=== PATIENT | female | born 1955 ===

== ENCOUNTER 2017-07-13 13:34 | Emergency (ER) | payer MEDICARE, OTHER ==
[2017-07-13 13:50] VITALS: BP 162/85; PULSE 65; RESP 16; TEMP 97.9; O2SAT 100
--- NOTE | 2017-07-13 13:59 | ED PDOC ---
HPI: General Adult Time Seen by Provider: 07/13/17 13:52 Chief Complaint (Nursing): Lower Extremity Problem/Injury Chief Complaint (Provider): fall History Per: Patient History/Exam Limitations: no limitations Onset/Duration Of Symptoms: Mins (prior to arrival) Current Symptoms Are (Timing): Still Present Additional Complaint(s): 62 year old female presents to the ED for evaluation after a fall, onset minutes prior to arrival. Patient reports she was crossing the street when her knee gave out and she fell onto her right knee, face and chest. Patient states she has a known torn ligament to right knee. she complains of pain to her chin and right knee and feels a tightness in chest since the fall. Patient says she feel anxious since she fell. Patient denies dizziness or syncope prior to arrival. She denies loss of consciousness. PMD: Dr. Armando Grier MD Past Medical History Reviewed: Historical Data, Nursing Documentation, Vital Signs Vital Signs: Last Vital Signs Temp 97.9 F 07/13/17 13:48 Pulse 65 07/13/17 13:48 Resp 16 07/13/17 13:48 BP 162/85 H 07/13/17 13:48 Pulse Ox 100 07/13/17 15:01 - Medical History PMH: Anxiety, Arthritis (RA), Rheumatoid Arthritis - Surgical History Surgical History: Appendectomy, Cholecystectomy, Tonsillectomy - Family History Family History: States: No Known Family Hx - Living Arrangements Living Arrangements: With Family - Social History Current smoker - smoking cessation education provided: No Alcohol: None Drugs: Denies - Home Medications Home Medications: Ambulatory Orders Medication Instructions Recorded Meclizine [Antivert] 12.5 mg PO Q6 PRN 07/13/15 "Herbals" 10/28/15 Meclizine HCl 12.5 mg PO Q8 #20 tablet 07/18/16 - Allergies Allergies/Adverse Reactions: Allergies Allergy/AdvReac Type Severity Reaction Status Date / Time No Known Allergies Allergy Verified 07/02/15 12:28 Review of Systems ROS Statement: Except As Marked, All Systems Reviewed And Found Negative ENT: Positive for: Other (chin pain s/p fall) Musculoskeletal: Positive for: Leg Pain (right knee pain) Neurological: Positive for: Other (no LOC) Physical Exam - Reviewed Nursing Documentation Reviewed: Yes Vital Signs Reviewed: Yes - Physical Exam Appears: Positive for: Well, Non-toxic, No Acute Distress Head Exam: Positive for: NORMAL INSPECTION, NORMOCEPHALIC Skin: Positive for: Normal Color. Negative for: Rash Eye Exam: Positive for: Normal appearance, EOMI, PERRL ENT: Positive for: Other (Mild tenderness to chin with full range of motion lower mandible, dentition intact, no intraoral lacerations) Neck: Positive for: Painless ROM Cardiovascular/Chest: Positive for: Regular Rate, Rhythm Respiratory: Positive for: Normal Breath Sounds. Negative for: Respiratory Distress Extremity: Positive for: Other (Mild swelling and tenderness to right knee with full range of motion) Neurologic/Psych: Positive for: Alert, Oriented, Gait (steady) - ECG Interpretation Of ECG: Sinus bradycardia 55 bpm, no acute findings, reviewed by PA and ED attending. O2 Sat by Pulse Oximetry: 100 (RA) Pulse Ox Interpretation: Normal - Other Rad X-ray mandible X-Ray: Interpreted by Me, Viewed By Me X-Ray Interpretation: no fx, no dis Right knee x-ray X-Ray: Interpreted by Me, Viewed By Me X-Ray Interpretation: no fx, no dis Medical Decision Making Medical Decision Making: Time: 13:59 Impression: 62 year old female for evaluation status post fall Initial Plan: --EKG --Right knee x-ray --Mandible x-ray --Pain meds declined. Patient is aware of all diagnostic testing results. All questions answered. Patient was given knee immobilizer. She was advised to take Tylenol for pain and follow up with primary doctor or orthopedist, referral provided. Scribe Attestation: Documented by Hue Woodson, acting as a scribe for Jazmin Martinez PA-C Provider Scribe Attestation: All medical record entries made by the Scribe were at my direction and personally dictated by me. I have reviewed the chart and agree that the record accurately reflects my personal performance of the history, physical exam, medical decision making, and the department course for this patient. I have also personally directed, reviewed, and agree with the discharge instructions and disposition. Disposition - Clinical Impression Clinical Impression: Facial contusion, Knee sprain, Accidental fall - Patient ED Disposition Is Patient to be Admitted: No Counseled Patient/Family Regarding: Studies Performed, Diagnosis, Need For Followup - Disposition Referrals: Jignesh Pierce MD [Medical Doctor] - Armando Grier MD [Family Provider] - Disposition: Routine/Home Disposition Time: 15:52 Condition: STABLE Additional Instructions: Ice and elevate affected areas. Tylenol for pain as needed. Follow-up with primary doctor or orthopedist for any persistent symptoms. Instructions: Knee Sprain (DC), Contusion (DC), Minor Head Injury (DC) Forms: [employer] (Khmer)
--- NOTE | 2017-07-14 10:32 | RAD ---
PROCEDURE: Right Knee Radiographs. HISTORY: trauma COMPARISON: None. FINDINGS: BONES: Normal. No fracture. JOINTS: Normal. No osteoarthritis. JOINT EFFUSION: None. OTHER FINDINGS: None. IMPRESSION: Normal radiographs of the right knee.
--- NOTE | 2017-07-15 09:12 | CARD ---
APPROVED REPORT EKG Measurement Heart [id number] <Conclusion> Sinus bradycardia Otherwise normal ECG
--- NOTE | 2017-07-15 15:33 | RAD ---
PROCEDURE: Radiographs of the Mandible HISTORY: fall COMPARISON: None available. TECHNIQUE: Multiple radiographs of the mandible were obtained. FINDINGS: Mandible intact, without frature or focal lesion. No temporomandibular joint dislocation. To the extent visualized on this study, the remainder of the facial bones are grossly intact. IMPRESSION: No acute displaced fracture or dislocation.
== END 2017-07-13 16:03 | disposition home or self-care (01) ==
LOC: H.ER 13:34
DX: S00.83XA Contusion of other part of head, initial encounter (principal); S83.91XA Sprain of unspecified site of right knee, initial encounter; W18.30XA Fall on same level, unspecified, initial encounter

== ENCOUNTER 2018-02-28 23:54 | Emergency (ER) | payer MEDICARE, OTHER ==
[2018-03-01] VITALS: RESP 16; TEMP 97.7; O2SAT 100
[2018-03-01] MEDS ORDERED: Alum-Mag Hydrox-Simethicone Susp (30 mL) PO ONE (00:54)
[2018-03-01] MEDS ORDERED: Alum-Mag Hydrox-Simethicone Susp (30 mL) ONE (00:58)
[2018-03-01 01:20] LABS: SQUAMOUS EPITHIAL < 1 /hpf (0-5); URINE BILIRUBIN NEGATIVE (NEGATIVE); URINE BLOOD SMALL (NEGATIVE); URINE CLARITY CLEAR (Clear); URINE COLOR STRAW (YELLOW); URINE GLUCOSE (UA) NEG (Normal); URINE LEUKOCYTE ESTERASE NEG Leu/uL (Negative); URINE PROTEIN NEGATIVE (NEGATIVE); URINE UROBILINOGEN 0.2-1.0 mg/dL (0.2-1.0)
--- NOTE | 2018-03-01 01:40 | ED PDOC ---
Syncope/Near Syncope/Dizziness Time Seen by Provider: 03/01/18 00:14 Chief Complaint (Nursing): Dizziness/Lightheaded Chief Complaint (Provider): Dizziness History Per: Patient History/Exam Limitations: no limitations Onset/Duration Of Symptoms: Hrs (today) Current Symptoms Are (Timing): Better Additional Complaint(s): Deidra Munson is a 62 year old female, with a past medical history of vertigo, who presents to the emergency department complaining of dizziness onset today. Patient states she's been worked up multiple times for it. Patient has 6.125mg of Meclizine but states she doesn't want to take more because it makes her feel lightheaded. She took a dose of Meclizine 6.125mg at around 22:00 because she was having a room spinning sensation. She reports she didn't want to take anymore but was worried because the feeling wasn't going away prompting ED visit. She denies any chest pain, shortness of breath, headache, numbness or tingling, weakness or other medical complaints. Patient is feeling better but has a burning epigastric discomfort and nausea because she has gastritis and ate spicy acidic food. PMD: Armando Grier Past Medical History Reviewed: Historical Data, Nursing Documentation, Vital Signs Vital Signs: Last Vital Signs Temp 97.7 F 02/28/18 23:57 Pulse 72 02/28/18 23:57 Resp 16 02/28/18 23:57 BP 173/89 H 02/28/18 23:57 Pulse Ox 100 02/28/18 23:57 - Medical History PMH: Anxiety, Arthritis (RA), Gastritis, Gall Bladder Disease (GB stone removed), Rheumatoid Arthritis Denies: Chronic Kidney Disease Other PMH: vertigo - Surgical History Surgical History: Appendectomy, Cholecystectomy, Tonsillectomy - Family History Family History: States: Unknown Family Hx - Immunization History Hx Tetanus Toxoid Vaccination: No Hx Influenza Vaccination: No - Home Medications Home Medications: Ambulatory Orders Medication Instructions Recorded Meclizine [Antivert] 12.5 mg PO Q6 PRN 07/13/15 "Herbals" 10/28/15 Meclizine HCl 12.5 mg PO Q8 #20 tablet 07/18/16 Famotidine [Pepcid] 20 mg PO BID #20 tab 03/01/18 Ondansetron ODT [Zofran ODT] 4 mg PO Q8 PRN #12 odt 03/01/18 - Allergies Allergies/Adverse Reactions: Allergies Allergy/AdvReac Type Severity Reaction Status Date / Time acetaminophen [From Percocet] Allergy RASH Verified 02/28/18 23:57 oxycodone [From Percocet] Allergy RASH Verified 02/28/18 23:57 Review of Systems ROS Statement: Except As Marked, All Systems Reviewed And Found Negative Cardiovascular: Negative for: Chest Pain Respiratory: Negative for: Shortness of Breath Gastrointestinal: Positive for: Nausea, Abdominal Pain (epigastric ) Neurological: Positive for: Dizziness. Negative for: Weakness, Numbness (tingling), Headache Physical Exam - Reviewed Nursing Documentation Reviewed: Yes Vital Signs Reviewed: Yes - Physical Exam Appears: Positive for: No Acute Distress Head Exam: Positive for: ATRAUMATIC, NORMAL INSPECTION, NORMOCEPHALIC Skin: Positive for: Normal Color, Warm, Dry Eye Exam: Positive for: Normal appearance, EOMI, PERRL Neck: Positive for: Painless ROM Cardiovascular/Chest: Positive for: Regular Rate, Rhythm. Negative for: Murmur Respiratory: Positive for: Normal Breath Sounds. Negative for: Respiratory Distress Gastrointestinal/Abdominal: Positive for: Normal Exam, Soft. Negative for: Tenderness, Guarding, Rebound Back: Positive for: Normal Inspection. Negative for: L CVA Tenderness, R CVA Tenderness, Vertebral Tenderness Extremity: Positive for: Normal ROM (upper and lower extremities). Negative for: Deformity, Swelling Neurologic/Psych: Positive for: Alert, Oriented (x3), Gait (stable). Negative for: Motor/Sensory Deficits - Laboratory Results Result Diagrams: 03/01/18 01:21 03/01/18 01:21 - ECG O2 Sat by Pulse Oximetry: 100 (RA) Pulse Ox Interpretation: Normal Medical Decision Making Medical Decision Making: Time: 00:14 A/P: 62 y/o female presenting with vertiginous symptoms now resolving. She doesn't want any more meclizine. Patient likely anxious, reassured that symptoms would resolve with another dose of Meclizine but refusing at this time. Blood w ork and EKG to evaluate for other causes of dizziness. Initial Plan: --EKG --BMP --CBC w/ differential --Maalox Plus 30 ml PO --Zofran ODT 8 mg PO --Urinalysis --Reevaluation 01:26 EKG: NSR @ 68bpm. No ST or Q wave changes. 02:30 Patient is feeling much better BP improved Patient states she will followup as outpatient Very well appearing upon discharge Scribe Attestation: Documented by Timoteo Javier, acting as a scribe for Juan Pablo Ho MD. Provider Scribe Attestation: All medical record entries made by the Scribe were at my direction and personally dictated by me. I have reviewed the chart and agree that the record accurately reflects my personal performance of the history, physical exam, medical decision making, and the department course for this patient. I have also personally directed, reviewed, and agree with the discharge instructions and disposition. Disposition - Clinical Impression Clinical Impression: Vertigo - Disposition Referrals: Armando Grire MD [Family Provider] - Disposition: Routine/Home Disposition Time: 02:30 Condition: STABLE Prescriptions: Famotidine [Pepcid] 20 mg PO BID #20 tab Ondansetron ODT [Zofran ODT] 4 mg PO Q8 PRN #12 odt PRN Reason: Nausea/Vomiting Instructions: Vertigo (a Type of Dizziness) Forms: [employer] (Telugu)
[2018-03-01 01:41] LABS: BASO % 0.4 % (0.0-2.0); EOS # 0.2 K/uL (0.0-0.7); EOS % 2.9 % (0.0-4.0); HEMOGLOBIN 15.3 g/dL (12.0-16.0); LYMPH # 1.7 K/uL (1.0-4.3); LYMPH % 28.4 % (20.0-40.0); MEAN CELL VOLUME 91.2 fl (81.0-99.0); MEAN CORPUSCULAR HEMOGLOBIN 30.8 pg (27.0-31.0); MEAN CORPUSCULAR HGB CONC 33.8 g/dL (33.0-37.0); MEAN PLATELET VOLUME 8.5 fl (7.2-11.7); MONO # 0.6 K/uL (0.0-0.8); NEUT # 3.4 K/uL (1.8-7.0); NEUT % 58.3 % (50.0-75.0); NRBC % 0.1 % (0.0-0.0); RBC 4.98 Mil/uL (3.80-5.20); RED CELL DISTRIBUTION WIDTH 13.7 % (11.5-14.5); WHITE BLOOD COUNT 5.9 K/uL (4.8-10.8)
[2018-03-01 01:50] LABS: BLOOD UREA NITROGEN 13 mg/dl (7-17); GFR NON-AFRICAN AMERICAN > 60
[2018-03-01 02:47] VITALS: BP 149/84; PULSE 62
--- NOTE | 2018-03-01 09:11 | CARD ---
APPROVED REPORT Date of service: 03/01/2018 EKG Measurement Heart [id number] <Conclusion> Normal sinus rhythm Normal ECG
== END 2018-03-01 02:45 | disposition home or self-care (01) ==
LOC: H.ER 23:54
DX: R42 Dizziness and giddiness (principal); M06.9 Rheumatoid arthritis, unspecified; Z79.899 Other long term (current) drug therapy; Z88.5 Allergy status to narcotic agent